=== PATIENT | male | born 1945 | race Caucasian/White ===

== ENCOUNTER → 2022-06-18 11:05 | Outpatient (CLI) | payer MEDICARE, SELFPAY ==
--- NOTE | 2022-06-18 | DI.CT.S_ITS ---
PROCEDURE: CT IVP A/P W/WO INDICATIONS: Gross hematuria TECHNIQUE: Optional 5 mm thick noncontrast images acquired from the diaphragm to the symphysis pubis. After the administration of intravenous contrast, 5 mm thick images acquired from the diaphragm to the symphysis pubis after a 10-minute delay. 2 mm thick coronal and sagittal reformats were then performed of the kidneys and ureters. For radiation dose reduction, the following was used: automated exposure control, adjustment of mA and/or kV according to patient size. COMPARISON: Outside Film, CT, CT ANGIO ABDOMEN PELVIS, 02/10/2022, 18:27. FINDINGS: Image quality: Excellent. Lung bases: Small left pleural effusion. Bibasilar atelectasis. Heart size is mildly increased. There is a moderate-sized hiatal hernia. Urinary system: Both kidneys are normal in size, without hydronephrosis or nephrolithiasis on pre-contrast images. No perinephric fat stranding. There is normal bilateral renal enhancement. Renal calyces appear normal in morphology when filled with contrast. Opacified portions of both ureters demonstrate normal caliber. Bladder wall is mildly thickened. There is a bladder diverticulum in the right lateral bladder wall measuring 3.9 cm AP x 2.9 cm transverse x 4.8 cm cephalocaudal.. No calcified bladder stones. Enlarged prostate. Other solid organs: Liver is normal in size and enhancement. Gallbladder is normal. Biliary system is non dilated. Pancreas enhances normally. Spleen is normal in size and enhancement. There are calcified granulomas in spleen. No adrenal nodules. Peritoneum and bowel: Bowel loops demonstrate normal wall thickness and caliber. Diverticulosis without diverticulitis. No free fluid or air. Nodes and vessels: No retroperitoneal or mesenteric adenopathy by size criteria. A borderline sized left para-aortic lymph node is noted, measuring 0.8 cm. Aorta and inferior vena cava are normal in size. Abdominal wall: No ventral hernias. Pelvis: No pathologic free pelvic fluid. There is a 1 cm lymph node in the anterior aspect of the pelvis adjacent to the urinary bladder. Slightly prominent left inguinal lymph node measuring 0.9 x 1.3 cm. . There is a small left fat containing inguinal hernia. Bones: No suspicious bony lesions. No vertebral body compression fractures. IMPRESSION: 1. No urinary stones or hydronephrosis. 2. No renal masses are identified. 3. Enlarged prostate. 4. Mild bladder wall thickening, which may be secondary to chronic bladder outlet obstruction or cystitis. 5. A 3.9 x 2.9 x 4.8 cm bladder diverticulum in the right bladder wall. 6. A mildly enlarged left anterior pelvic lymph node adjacent to the urinary bladder. 7. Diverticulosis. No acute diverticulitis. 8. Small left pleural effusion. 9. A small fat containing left inguinal hernia. Dictated by: Armani Pelaez M.D. on 06/18/2022 at 14:22 Approved by: Armani Pelaez M.D. on 06/19/2022 at 9:06
== END ==
PROVIDERS: PCP Internal Medicine; Referring Provider Physician Assistant Medical; Visit Provider Physician Assistant Medical
DX: R31.0 Gross hematuria (principal); J90 Pleural effusion, not elsewhere classified; N32.3 Diverticulum of bladder; K40.90 Unilateral inguinal hernia, without obstruction or gangrene, not specified as recurrent; R59.0 Localized enlarged lymph nodes; K44.9 Diaphragmatic hernia without obstruction or gangrene; K57.90 Diverticulosis of intestine, part unspecified, without perforation or abscess without bleeding; N40.0 Benign prostatic hyperplasia without lower urinary tract symptoms
CPT/HCPCS: 74178; Q9967

== ENCOUNTER → 2025-04-27 13:14 | Outpatient (CLI) | payer MEDICARE, SELFPAY ==
--- NOTE | 2025-04-27 13:16 | DI.ECHO.S_ITS ---
[facility] : : [id number] : : [place] : : [id number] : : Phone: [phone] Echocardiogram Report + + :Name: GABRIELA BECKER Study Date: 04/27/2025 Height: 71 in : :[facility] ReadingLocation: Weight: 212 lb : : Gender: Male BSA: 2.2 m2 : :: 1945 Age: 79 yrs BP: 165/86 mmHg: :Reason For Study: HISTORY OF MYOCARDITIS : :Ordering Physician: BEATRICE ALEXANDER Performed By: Polina Polk : :Referring: BEATRICE ALEXANDER : + + Interpretation Summary 1. The left ventricular contractility is normal. Estimate ejection fraction is greater than 55% with no segmental wall motion abnormalities. No LVH. Indeterminate diastolic function. 2. The right ventricular contractility is normal. 3. Mild left atrial enlargement. The right ventricle is also mildly dilated. The right atrium and left ventricle are of normal size. 4. No significant valvular abnormalities. 5. No obvious intracardiac shunts. 6. No obvious intracardiac masses nor thrombi. 7. No hemodynamically significant pericardial effusion. 8. Low right-sided filling pressures. Conclusion: Normal biventricular systolic function with no significant valvular abnormalities. Procedure: A two-dimensional transthoracic echocardiogram with color flow and Doppler was performed. The study quality was technically adequate. There is no prior echocardiogram noted for this patient. The patient was in sinus rhythm with heart rates between 60-65 bpm during the exam. Left Ventricle: The left ventricle is normal in size and wall thickness. The ejection fraction is estimated to be 55-60%. Right Ventricle: The right ventricle is mildly dilated. The right ventricular systolic function is normal. Atria: The left atrium is mildly dilated. Right atrial size is normal. There is no Doppler evidence for an interatrial shunt. Mitral Valve: The mitral valve leaflets appear mildly thickened, but open well. There is mild mitral annular calcification. There is trace mitral regurgitation. Aortic Valve: The aortic valve is trileaflet. The aortic valve opens well. There is no aortic valve stenosis. There is trace aortic regurgitation. Tricuspid Valve: The tricuspid valve leaflets are thin and pliable. There is trace tricuspid regurgitation. Pulmonary artery pressures cannot be estimated because of the lack of a measurable TR jet velocity but the IVC suggests a CVP of around 3 mmHg. Pulmonic Valve: The pulmonic valve is not well seen, but is grossly normal. There is trace pulmonic regurgitation. Great Vessels: The aortic root is normal size. The dimensions of the ascending aorta are normal. The IVC is of normal diameter and collapses greater than 50% with a sniff. This suggests a low right atrial pressure of 3 mm Hg. Pericardium/ Pleura There is no pericardial effusion. There is no pleural effusion. MMode/2D Measurements & Calculations LVIDd: 5.3 cm LVOT diam: 2.2 cm LVIDs: 3.8 cm Ao root diam: 3.8 cm FS: 27.1 % asc Aorta Diam: 3.3 cm IVSd: 0.97 cm Ao Arch Diam (Prox Trans): 3.4 cm LVPWd: 1.0 cm LV huerta. diameter/BSA (cm/m^2): 2.4 LV sys. diameter/BSA (cm/m^2): 1.8 LA A2 area: 23.1 cm2 RA long axis: 6.4 cm LA A4 area: 27.2 cm2 RA area: 22.3 cm2 LA length (vol): 6.4 cm RA vol: 65.9 ml LA vol: 83.3 ml RA : 30.5 ml/m2 LA vol index: 38.5 ml/m2 IVC diam: 1.9 cm RVD1 (basal): 4.2 cm RVD2 (mid): 3.4 cm TAPSE: 2.8 cm Doppler Measurements & Calculations Ao V2 max: 156.2 cm/sec LVOT Max Prudencio: 80.8 cm/sec Ao V2 mean: 107.9 cm/sec LV V1 max P.6 mmHg Ao max P.8 mmHg LV V1 VTI: 19.5 cm Ao mean P.3 mmHg LUCI(I,D): 2.3 cm2 Ao V2 VTI: 34.2 cm LUCI(V,D): 2.0 cm2 sev ratio: 0.57 LUCI indexed to BSA (cm^2/m^2): 1.0 AI P1/2t: 658.8 msec AI dec slope: 185.2 cm/sec2 MV E max prudencio: 88.4 cm/sec PA V2 max: 99.4 cm/sec MV A max prudencio: 76.0 cm/sec PA V2 mean: 70.0 cm/sec MV E/A: 1.2 PA mean P.2 mmHg Med Peak E' Prudencio: 5.8 cm/sec PA pr(Accel): 18.6 mmHg E/E' med: 15.1 Lat Peak E' Prudencio: 10.3 cm/sec E/E' lat: 8.6 E/e' average: 11.9 MV dec time: 0.25 sec MVA(VTI): 2.3 cm2 MV V2 mean: 62.8 cm/sec SV(LVOT): 77.2 ml MV mean P.7 mmHg MV V2 VTI: 34.1 cm Reading Physician:ILIANA
== END ==
PROVIDERS: PCP Internal Medicine; Referring Provider Internal Medicine; Visit Provider Internal Medicine
DX: I34.0 Nonrheumatic mitral (valve) insufficiency (principal); Z86.79 Personal history of other diseases of the circulatory system
CPT/HCPCS: 93306